=== PATIENT | female | born 1995 | race Caucasian/White ===

== ENCOUNTER 2021-02-20 12:33 | Emergency (ER) | payer OTHER ==
[~2021-02-20] VITALS: Ht 162.6 cm; Wt 63.5 kg
[~2021-02-20 12:33] MED LIST: B-COMPLEX-VITA1 EACH PO; BIRTH CONTROL; IRON236 MG PO; MULTIVITAMINS1 EAC7 PO; PHENERGAN 25 MG25 M1 PO; ZOLOFT 50 MG TA50 M1 PO
[2021-02-20 13:15] LABS: INFLUENZA A ANTIGEN Negative (Negative); INFLUENZA B ANTIGEN Negative (Negative)
[2021-02-20] MEDS ORDERED: APAP W/CODEINE1 TA2 PO (13:19)
[2021-02-20] MEDS ORDERED: TESSALON PERLE100 MG PO (13:19)
[2021-02-20] MEDS ORDERED: PROMETHAZI6.25 MG/5 PO (13:19)
[2021-02-20 13:24] VITALS: BP 124/54
== END 2021-02-20 13:25 | disposition home or self-care (01) ==
LOC: M.ERS 12:33
PROVIDERS: Physician Assistant
DX: U07.1 COVID-19 (principal); F17.210 Nicotine dependence, cigarettes, uncomplicated; Z79.899 Other long term (current) drug therapy